=== PATIENT | male | born 1955 | race Two or more races ===

== ENCOUNTER 2020-10-07 09:04 | Emergency (ER) | payer OTHER ==
[2020-10-07 09:13] VITALS: RESP 18
[2020-10-07] MEDS ORDERED: KETOROLAC 15 MG/ML 1 ML VIAL IVP STA (09:53)
[2020-10-07] MEDS ORDERED: ONDANSETRON 4 MG/2 ML VIAL IVP STA (09:53)
[2020-10-07] MEDS ORDERED: SODIUM CHLORIDE 0.9% 1,000 ML IV ONE (09:54)
--- NOTE | 2020-10-07 10:14 | XR ---
EXAMINATION TYPE: XR chest 2V DATE OF EXAM: 10/07/2020 COMPARISON: NONE HISTORY: Shortness of breath and cough, dizziness and loss of appetite TECHNIQUE: Frontal and lateral views of the chest are obtained. FINDINGS: There is some patchy density seen bilaterally within the lungs. No evident pneumothorax or pleural effusion. Heart and mediastinal silhouette is within normal limits. Aorta is dense. IMPRESSION: Correlate for possible pneumonia. Follow-up as indicated.
[2020-10-07 10:22] LABS: Basophils # (A) 0.1 k/uL (0-0.2); Basophils % (A) 1 %; Eosinophils % (A) 0 %; HCT 49.8 % (39.0-53.0); Lymphocytes # (A) 1.3 k/uL (1.0-4.8); Lymphocytes % (A) 19 %; MCV 88.2 fL (80.0-100.0); Mean Platelet Volume 8.5; Monocytes # (A) 0.7 k/uL (0-1.0); Monocytes % (A) 11 %; Neutrophils # (A) 4.6 k/uL (1.3-7.7); Neutrophils % (A) 67 %; Platelet Count 212 k/uL (150-450); RBC 5.65 m/uL (4.30-5.90); RDW 13.8 % (11.5-15.5)
[2020-10-07 10:36] LABS: Albumin 4.8 g/dL (3.5-5.0); Calcium 9.1 mg/dL (8.4-10.2); Potassium 4.6 mmol/L (3.5-5.1); Total Bilirubin 1.2 mg/dL (0.2-1.3); Total Protein 8.5 g/dL (6.3-8.2)
[2020-10-07] MEDS ORDERED: ACETAMINOPHEN TAB 325 MG TAB PO STA (11:02)
--- NOTE | 2020-10-07 11:43 | ED ---
General Adult HPI - General Chief complaint: Upper Respiratory Infection Stated complaint: Vomiting Time Seen by Provider: 10/07/20 09:47 Source: patient, RN notes reviewed Mode of arrival: ambulatory Limitations: no limitations - History of Present Illness Initial comments: This a 65-year-old male presents emergency Department chief complaint of genera lized not feeling well. Patient's had nausea vomiting diarrhea cough congestion no major shortness breath no chest pain currently. Patient states that he just generally does not feel well he's had in between fevers and body aches. - Related Data Previous Rx's Medication Instructions Recorded Ondansetron Odt [Zofran Odt] 4 mg PO Q8HR PRN #10 tab 10/07/20 Allergies Allergy/AdvReac Type Severity Reaction Status Date / Time Penicillins Allergy Unknown Verified 10/07/20 11:23 Childhood Review of Systems ROS Statement: Those systems with pertinent positive or pertinent negative responses have been documented in the HPI. ROS Other: All systems not noted in ROS Statement are negative. Past Medical History Past Medical History: No Reported History History of Any Multi-Drug Resistant Organisms: None Reported Past Surgical History: No Surgical Hx Reported Past Psychological History: No Psychological Hx Reported Smoking Status: Former smoker Past Alcohol Use History: None Reported Past Drug Use History: None Reported General Exam Limitations: no limitations General appearance: alert, in no apparent distress Head exam: Present: atraumatic, normocephalic, normal inspection Eye exam: Present: normal appearance, PERRL, EOMI. Absent: scleral icterus, conjunctival injection, periorbital swelling ENT exam: Present: normal exam, normal oropharynx, mucous membranes moist, TM's normal bilaterally Neck exam: Present: normal inspection, full ROM. Absent: tenderness, meningismus, lymphadenopathy Respiratory exam: Present: normal lung sounds bilaterally. Absent: respiratory distress, wheezes, rales, rhonchi, stridor Cardiovascular Exam: Present: regular rate, normal rhythm, normal heart sounds. Absent: systolic murmur, diastolic murmur, rubs, gallop, clicks GI/Abdominal exam: Present: soft, normal bowel sounds. Absent: distended, tenderness, guarding, rebound, rigid Course Vital Signs 10/07/20 10/07/20 09:10 10:13 Temperature 99.5 F 100.1 F H Pulse Rate 93 Respiratory 18 Rate Blood Pressure 106/79 O2 Sat by Pulse 98 98 Oximetry Medical Decision Making - Medical Decision Making Chest x-ray shows evidence of Covid pneumonia, vitals are otherwise stable, labs unremarkable. Patient discharged in stable condition. - Lab Data Result diagrams: 10/07/20 10:04 10/07/20 10:04 Lab Results 10/07/20 10/07/20 10/07/20 Range/Units 09:41 10:04 10:04 WBC 7.0 (3.8-10.6) k/uL RBC 5.65 (4.30-5.90) m/uL Hgb 17.0 (13.0-17.5) gm/dL Hct 49.8 (39.0-53.0) % MCV 88.2 (80.0-100.0) fL MCH 30.0 (25.0-35.0) pg MCHC 34.0 (31.0-37.0) g/dL RDW 13.8 (11.5-15.5) % Plt Count 212 (150-450) k/uL MPV 8.5 Neutrophils % 67 % Lymphocytes % 19 % Monocytes % 11 % Eosinophils % 0 % Basophils % 1 % Neutrophils # 4.6 (1.3-7.7) k/uL Lymphocytes # 1.3 (1.0-4.8) k/uL Monocytes # 0.7 (0-1.0) k/uL Eosinophils # 0.0 (0-0.7) k/uL Basophils # 0.1 (0-0.2) k/uL Sodium 137 (137-145) mmol/L Potassium 4.6 (3.5-5.1) mmol/L Chloride 99 (98-107) mmol/L Carbon Dioxide 24 (22-30) mmol/L Anion Gap 14 mmol/L BUN 20 (9-20) mg/dL Creatinine 1.38 H (0.66-1.25) mg/dL Est GFR (CKD-EPI)AfAm 63 (>60 ml/min/1.73 sqM) Est GFR (CKD-EPI)NonAf 54 (>60 ml/min/1.73 sqM) Glucose 135 H (74-99) mg/dL Calcium 9.1 (8.4-10.2) mg/dL Total Bilirubin 1.2 (0.2-1.3) mg/dL AST 74 H (17-59) U/L ALT 84 H (4-49) U/L Alkaline Phosphatase 79 (38-126) U/L Total Protein 8.5 H (6.3-8.2) g/dL Albumin 4.8 (3.5-5.0) g/dL Lipase 71 (23-300) U/L Coronavirus (PCR) Detected A (Not Detectd) Disposition Clinical Impression: COVID-19 Disposition: HOME SELF-CARE Condition: Stable Instructions (If sedation given, give patient instructions): Coronavirus Disease 2019 (COVID-19) Additional Instructions: Please return to the Emergency Department if symptoms worsen or any other concerns. Prescriptions: Ondansetron Odt [Zofran Odt] 4 mg PO Q8HR PRN #10 tab PRN Reason: Nausea Is patient prescribed a controlled substance at d/c from ED?: No Referrals: None,Stated [Primary Care Provider] - 1-2 days Time of Disposition: 11:43
[2020-10-07 11:59] VITALS: BP 126/78; PULSE 90; TEMP 98.9
== END 2020-10-07 12:05 | disposition home or self-care (01) ==
LOC: EC 09:04
DX: U07.1 COVID-19 (principal); Z87.891 Personal history of nicotine dependence; Z88.0 Allergy status to penicillin
CPT/HCPCS: 36415; 80053; 83690; 85025; 87635; 71046; 99284; 96374; 96375; 96361; J2405; J1885

== ENCOUNTER 2020-10-12 18:49 | Inpatient (IN) | payer OTHER ==
--- NOTE | 2020-10-12 19:15 | ED ---
General Adult HPI <Mike Li - Last Filed: 10/12/20 19:11> <Venancio Eng - Last Filed: 10/13/20 02:03> - General Stated complaint: covid+/low oxygen & fever - History of Present Illness Initial comments: 65-year-old male presents to emergency Department with a chief complaint cough, fever, myalgias, fatigue. Patient reports dyspnea on exertion but denies any chest pain. Reports a nonproductive cough. Patient tested positive for Covid on 10/07/20. Patient states he was in emergency department on 5 days ago for the same complaint. Patient is currently at 95% on 3 L of oxygen on nasal cannula. (Mike Li) - Related Data Home Medications Medication Instructions Recorded Confirmed Acetaminophen [Tylenol] 1,000 mg PO Q4H PRN 10/12/20 10/12/20 Ibuprofen [Motrin Ib] 800 mg PO Q4H PRN 10/12/20 10/12/20 Previous Rx's Medication Instructions Recorded Ondansetron Odt [Zofran Odt] 4 mg PO Q8HR PRN #10 tab 10/07/20 Allergies Allergy/AdvReac Type Severity Reaction Status Date / Time Penicillins Allergy Unknown Verified 10/12/20 23:31 Childhood Review of Systems ROS Other: All systems not noted in ROS Statement are negative. <Mike Li - Last Filed: 10/12/20 19:11> ROS Other: All systems not noted in ROS Statement are negative. <Venancio Eng - Last Filed: 10/13/20 02:03> ROS Statement: Those systems with pertinent positive or pertinent negative responses have been documented in the HPI. Past Medical History Past Medical History: No Reported History History of Any Multi-Drug Resistant Organisms: None Reported Past Surgical History: No Surgical Hx Reported Past Psychological History: No Psychological Hx Reported Smoking Status: Former smoker Past Alcohol Use History: None Reported Past Drug Use History: None Reported <Mike Li - Last Filed: 10/12/20 19:11> General Exam General appearance: alert, in no apparent distress, anxious, in distress Head exam: Present: atraumatic, normocephalic, normal inspection Eye exam: Present: normal appearance, PERRL, EOMI. Absent: scleral icterus, conjunctival injection, periorbital swelling ENT exam: Present: normal exam, mucous membranes moist Neck exam: Present: normal inspection. Absent: tenderness, meningismus, lymphadenopathy Respiratory exam: Present: respiratory distress, decreased breath sounds, prolonged expiratory. Absent: wheezes, rales, rhonchi, stridor Cardiovascular Exam: Present: regular rate, normal rhythm, normal heart sounds. Absent: systolic murmur, diastolic murmur, rubs, gallop, clicks GI/Abdominal exam: Present: soft, normal bowel sounds. Absent: distended, tenderness, guarding, rebound, rigid Extremities exam: Present: normal inspection, full ROM, normal capillary refill. Absent: tenderness, pedal edema, joint swelling, calf tenderness Back exam: Present: normal inspection Neurological exam: Present: alert, oriented X3, CN II-XII intact Psychiatric exam: Present: normal affect, normal mood Skin exam: Present: warm, dry, intact, normal color. Absent: rash <Venancio Eng - Last Filed: 10/13/20 02:03> Course <Venancio Eng - Last Filed: 10/13/20 02:03> Vital Signs 10/12/20 10/12/20 19:12 22:58 Temperature 98.2 F 98.0 F Pulse Rate 97 73 Respiratory 26 H 18 Rate Blood Pressure 118/86 139/93 O2 Sat by Pulse 93 L 93 L Oximetry - Reevaluation(s) Reevaluation #1: 10/13/20 02:02 Medical records reviewed (Venancio Eng) Reevaluation #2: 10/13/20 02:02 Patient remains hypoxic without supplemental O2 here in the ER (Venancio Eng) Reevaluation #3: 10/13/20 02:02 Patient informed results and questions have been answered (Venancio Eng) - Consultations Consultation #1: Spoke with sound who agrees to admit this patient (Venancio Eng) Medical Decision Making - Lab Data Result diagrams: 10/12/20 23:22 10/12/20 23:22 - Radiology Data Radiology results: report reviewed (Chest x-rays positive for infiltrate secondary to covid), image reviewed <Venancio Eng - Last Filed: 10/13/20 02:03> - Medical Decision Making 65 male to the ER with coronavirus positive for continued exposure with hypoxia. Patient significantly ill [place] for continued supportive care (Venancio Martino) Critical Care Time Critical Care Time: Yes Total Critical Care Time: 31 <Venancio Eng - Last Filed: 10/13/20 02:03> Disposition <Mike Li - Last Filed: 10/12/20 19:11> Is patient prescribed a controlled substance at d/c from ED?: No <Venancio Eng - Last Filed: 10/13/20 02:03> Clinical Impression: COVID-19, Pneumonia due to COVID-19 virus, Hypoxia Disposition: ADMITTED IP TO THIS HOSP Condition: Fair
[2020-10-12] MEDS ORDERED: ALBUTEROL HFA INHALER INHALATION STA (23:09)
[2020-10-12] MEDS ORDERED: ACETAMINOPHEN TAB 500 MG TAB PO STA (23:09)
[2020-10-12] MEDS ORDERED: NALOXONE 0.4 MG/ML 1 ML VIAL IV PRN (23:09)
[2020-10-12] MEDS ORDERED: MORPHINE SULFATE 4 MG/ML SYRINGE IV PRN (23:09)
[2020-10-12] MEDS ORDERED: IBUPROFEN 400 MG TAB PO PRN (23:09)
[2020-10-12] MEDS ORDERED: ACETAMINOPHEN TAB 325 MG TAB PO PRN (23:09)
[2020-10-12] MEDS ORDERED: ONDANSETRON 4 MG/2 ML VIAL IVP PRN (23:09)
[2020-10-12] MEDS ORDERED: DEXAMETHASONE SOD PHOSPHATE 10 MG/ML 1 ML VIAL IV STA (23:13)
[2020-10-12] MEDS ORDERED: KETOROLAC 15 MG/ML 1 ML VIAL IVP STA (23:13)
[2020-10-12] MEDS: SODIUM CHLORIDE 0.9% 1,000 ML IV SCH (23:35)
[2020-10-13 00:17] LABS: ALT 88 U/L (4-49); AST 99 U/L (17-59); African American GFR (CKD) >90 (>60 ml/min/1.73 sqM); Albumin 3.9 g/dL (3.5-5.0); Alkaline Phosphatase 98 U/L (38-126); Anion Gap 11 mmol/L; Blood Urea Nitrogen 23 mg/dL (9-20); C Reactive Protein 89.1 mg/L (<10.0); Calcium 9.1 mg/dL (8.4-10.2); Carbon Dioxide 24 mmol/L (22-30); Chloride 104 mmol/L (98-107); Glucose 122 mg/dL (74-99); Magnesium 2.5 mg/dL (1.6-2.3); Non-African American GFR(CKD) >90 (>60 ml/min/1.73 sqM); Potassium 4.7 mmol/L (3.5-5.1); Sodium 139 mmol/L (137-145); Total Bilirubin 1.2 mg/dL (0.2-1.3); Total Protein 7.5 g/dL (6.3-8.2)
[2020-10-13 00:34] LABS: D-Dimer 1.17 mg/L FEU (<0.60); INR 0.9 (<1.2); Partial Thromboplastin Time 32.3 sec (22.0-30.0)
[2020-10-13 00:37] LABS: HCT 45.7 % (39.0-53.0); HGB 15.9 gm/dL (13.0-17.5); MCH 30.7 pg (25.0-35.0); MCHC 34.8 g/dL (31.0-37.0); MCV 88.3 fL (80.0-100.0); Mean Platelet Volume 9.6; Platelet Count 332 k/uL (150-450); RBC 5.18 m/uL (4.30-5.90); RDW 13.7 % (11.5-15.5); WBC 8.7 k/uL (3.8-10.6)
[2020-10-13 00:59] LABS: Band Neutrophils % 1 %; Lymphocytes # (M) 2.18 k/uL (1.0-4.8); Metamyelocytes # (M) 0.09 k/uL (0); Metamyelocytes % 1 %; Neutrophils % (M) 65 %; Nucleated Red Blood Cells 0 /100 WBC (0-0); Total Cells Counted 100
--- NOTE | 2020-10-13 05:06 | P.HPIM ---
History of Present Illness H&P Date: 10/13/20 Chief Complaint: SOB 65 year old male with no significant past medical history patient was diagnosed with COVID in our ER on october 07, he had symptoms for about 4 days before that , he had close contact with his nephew who was later diagnosed with COVID and doing well now. patient describe sympotoms of generalized body aches , fever, chills, nausea and vomiting, passing out couple times. his who lives with him is doing well, however, she is just starting to have some sore throat. he comes in today due to feeling shortness of breath. he was found to be hypoxic 87% on room air, improved with supplemental oxygen of 3 L NC. blood work reviewed. patient denies any smoking, drug use, or alcohol on regular basis he report big improvement and more comfortable breathing with oxygen . he currently denies any chest pain . Review of Systems Pertinent positives as noted in HPI. All other systems were reviewed and are negative Past Medical History Past Medical History: No Reported History Additional Past Medical History / Comment(s): covid 10/07 History of Any Multi-Drug Resistant Organisms: None Reported Past Surgical History: No Surgical Hx Reported Past Psychological History: No Psychological Hx Reported Smoking Status: Former smoker Past Alcohol Use History: None Reported Past Drug Use History: None Reported - Past Family History family Family Medical History: No Reported History Medications and Allergies Home Medications Medication Instructions Recorded Confirmed Type Ondansetron Odt [Zofran Odt] 4 mg PO Q8HR PRN #10 tab 10/07/20 10/12/20 Rx Acetaminophen [Tylenol] 1,000 mg PO Q4H PRN 10/12/20 10/12/20 History Ibuprofen [Motrin Ib] 800 mg PO Q4H PRN 10/12/20 10/12/20 History Allergies Allergy/AdvReac Type Severity Reaction Status Date / Time Penicillins Allergy Unknown Verified 10/12/20 23:31 Childhood Physical Exam Vitals: Vital Signs Temp Pulse Resp BP Pulse Ox 10/13/20 01:00 98.3 F 81 18 110/83 96 10/13/20 00:00 18 10/12/20 22:58 98.0 F 73 18 139/93 93 L 10/12/20 19:12 98.2 F 97 26 H 118/86 93 L Intake and Output 0410/12/20 10/13/20 14:59 22:59 06:59 Other: Weight 90.718 kg Constitutional: No acute distress, conversant, pleasant Eyes: Anicteric sclerae, moist conjunctiva, Pupils equal round reactive to light ENMT: NC/AT Oropharynx clear, no erythema, or exudates Neck: Supple, FROM, no masses, or JVD No carotid bruits No thyromegaly Lungs: Clear to auscultation Clear to percussion Normal respiratory effort, no accessory muscle use Cardiovascular: Heart regular in rate and rhythm, No murmurs, gallops, or rubs No peripheral edema Abdominal: Soft Nontender, no guarding, rebound or rigidity Abdomen moving with respiration Normoactive bowel sounds No hepatomegaly, No splenomegaly No palpable mass No abdominal wall hernia noted Skin: Normal temperature, tone, texture, turgor No induration No subcutaneous nodules No rash, lesions No ulcers Extremities: No digital cyanosis No clubbing Pedal pulses intact and symmetrical Radial pulses intact and symmetrical No calf tenderness Psychiatric: Alert and oriented to person, place and time Appropriate affect fair judgement Neuro Muscles Strength 5/5 in all 4 extremities Sensation to light touch grossly present throughout Cranial nerves II-XII grossly intact No focal sensory deficits Lymphatics: no palpable cervical or supraclavicular , or inguinal lymph nodes Results CBC & Chem 7: 10/12/20 23:22 10/12/20 23:22 Labs: Abnormal Lab Results - Last 24 Hours (Table) 10/12/20 10/12/20 10/12/20 Range/Units 23:22 23:22 23:22 Metamyelocytes # (Man) 0.09 H (0) k/uL APTT 32.3 H (22.0-30.0) sec D-Dimer 1.17 H (<0.60) mg/L FEU BUN 23 H (9-20) mg/dL Glucose 122 H (74-99) mg/dL Magnesium (1.6-2.3) mg/dL AST 99 H (17-59) U/L ALT 88 H (4-49) U/L Lactate Dehydrogenase (313-618) U/L C-Reactive Protein (<10.0) mg/L 10/12/20 Range/Units 23:22 Metamyelocytes # (Man) (0) k/uL APTT (22.0-30.0) sec D-Dimer (<0.60) mg/L FEU BUN (9-20) mg/dL Glucose (74-99) mg/dL Magnesium 2.5 H (1.6-2.3) mg/dL AST (17-59) U/L ALT (4-49) U/L Lactate Dehydrogenase 1511 H (313-618) U/L C-Reactive Protein 89.1 H (<10.0) mg/L Assessment and Plan Assessment: Acute hypoxic respiratory failure COVID pneumonitis Slightly elevated liver enzymes Plan Supportive care Supplemental oxygen as needed Decadron Pulmonary consult Follow-up labs Follow-up d-dimer, LDH, ferritin for prognostic evaluation Contact and droplet precautions Check chest x-ray Monitor liver enzymes, cautious with Tylenol Lovenox for DVT prophylaxis Patient is full code Anticipated length of stay more than 2 midnights Anticipated discharge to home
[2020-10-13 05:12] LABS: HCT 40.8 % (39.0-53.0); HGB 14.2 gm/dL (13.0-17.5); MCH 30.5 pg (25.0-35.0); MCHC 34.7 g/dL (31.0-37.0); MCV 87.8 fL (80.0-100.0); Mean Platelet Volume 8.6; Platelet Count 369 k/uL (150-450); RBC 4.64 m/uL (4.30-5.90); RDW 13.6 % (11.5-15.5); WBC 6.8 k/uL (3.8-10.6)
[2020-10-13 05:38] LABS: Potassium 4.4 mmol/L (3.5-5.1)
[2020-10-13 05:39] LABS: ALT 131 U/L (4-49); AST 170 U/L (17-59); African American GFR (CKD) >90 (>60 ml/min/1.73 sqM); Albumin 3.3 g/dL (3.5-5.0); Alkaline Phosphatase 93 U/L (38-126); Anion Gap 7 mmol/L; Blood Urea Nitrogen 26 mg/dL (9-20); Calcium 8.6 mg/dL (8.4-10.2); Carbon Dioxide 25 mmol/L (22-30); Chloride 104 mmol/L (98-107); Glucose 195 mg/dL (74-99); Magnesium 2.4 mg/dL (1.6-2.3); Non-African American GFR(CKD) >90 (>60 ml/min/1.73 sqM); Phosphorus 2.6 mg/dL (2.5-4.5); Sodium 136 mmol/L (137-145); Total Bilirubin 1.1 mg/dL (0.2-1.3); Total Protein 6.5 g/dL (6.3-8.2)
--- NOTE | 2020-10-13 07:29 | XR ---
EXAMINATION TYPE: XR chest 1V DATE OF EXAM: 10/13/2020 HISTORY: Shortness of breath. COMPARISON: 10/07/2020 TECHNIQUE: Single view of the chest is submitted. FINDINGS: Demonstrated are scattered senescent parenchymal change. Patchy perihilar and basilar infiltrates. The heart is stable. Hilar and mediastinal structures are within normal limits. Degenerative changes are seen of the dorsal spine. IMPRESSION: 1. Patchy perihilar and basilar infiltrates.
[2020-10-13] MEDS: DEXAMETHASONE SOD PHOSPHATE 10 MG/ML 1 ML VIAL IV SCH (07:48)
[2020-10-13] MEDS: ENOXAPARIN 40 MG/0.4 ML SYRINGE SQ SCH (07:48)
[2020-10-13 08:09] LABS: Lymphocytes # (M) 1.09 k/uL (1.0-4.8); Neutrophils # (M) 5.71 k/uL (1.3-7.7); Neutrophils % (M) 84 %; Nucleated Red Blood Cells 0 /100 WBC (0-0); Total Cells Counted 100
[2020-10-13] MEDS: ALBUTEROL HFA INHALER INHALATION PRN ×4 (08:24→22:34)
[2020-10-13] MEDS: CHOLECALCIFEROL 25 MCG (1000 IU) TABLET PO SCH (09:28)
[2020-10-13] MEDS: FAMOTIDINE 20 MG TAB PO SCH (09:28)
[2020-10-13] MEDS: SODIUM CHLORIDE 0.9% 1,000 ML IV SCH ×2 (09:29→20:42)
[2020-10-13] MEDS: ZINC SULFATE 220 MG CAP PO SCH (09:29)
[2020-10-13 10:50] LABS: LDH 1535 U/L (313-618)
--- NOTE | 2020-10-13 11:39 | P.CNPUL ---
History of Present Illness Consult date: 10/13/20 Requesting physician: Mike Li Reason for consult: dyspnea, hypoxemia, abnormal CXR/CT Chief complaint: Dyspnea, cough, fever, syncopal episodes, COVID 19 History of present illness: 65-year-old white male patient, who is a former smoker, quit smoking 5 years ago, but no chronic lung condition, not on any chronic prescription medications on a regular basis, who came into the emergency department on 10/12/2020 with symptoms of increased shortness of breath, cough, patient was having high fevers at home, and had a syncopal episodes. he was seen in the ER on 10/07/2020 and tested positive for COVID 19, he had initial symptoms of cough, body aches, nausea vomiting on 10/01/2020. He states his nephew apparently recently tested positive for COVID 19 and he had been in contact with him. Normally he does not wear any oxygen. He was sent home on 10/07/2020 however at home he continued to deteriorate, he had several syncopal episodes at home, high fevers, his was treating his fever with [id number] antipyretics, and wrapping him in cold wet towels. He is now requiring supplemental oxygen, currently on 3 L of oxygen pulse ox is 93%, afebrile while in the hospital, hemodynamically he is stable, she was started on Decadron, he was given IV fluids, started on prophylactic anticoagulation, and we were asked to see the patient in consultation for COVID 19 related pneumonia. His chest x-ray shows patchy perihilar and basilar infiltrates. Lab work showed white count 8.6, hemoglobin is 15.9, no lymphopenia, lymphocyte count was normal at 2.18, metamyelocytes of 0.09, and d- dimer was 1.17, electrolytes within normal limits, BUN of 23, creatinine 0.83, AST was 99, ALT was 88, alkaline phosphatase was 98, LDH was 1511, and CRP was 89.1. Review of Systems All systems: negative Constitutional: Reports fatigue, Reports fever, Reports weakness, Denies chills Eyes: denies blurred vision, denies pain Ears, nose, mouth and throat: Denies headache, Denies sore throat Cardiovascular: Denies chest pain, Denies shortness of breath Respiratory: Reports cough, Reports dyspnea Gastrointestinal: Denies abdominal pain, Denies diarrhea, Denies nausea, Denies vomiting Musculoskeletal: Denies myalgias Integumentary: Denies pruritus, Denies rash Neurological: Reports syncope, Denies numbness, Denies weakness Psychiatric: Denies anxiety, Denies depression Endocrine: Denies fatigue, Denies weight change Past Medical History Past Medical History: Respiratory Disorder Additional Past Medical History / Comment(s): Pt diagnosed with covid 4 at [facility] ER. Pt states he has no past medical hx and that he does not see a physician regularly. History of Any Multi-Drug Resistant Organisms: None Reported Past Surgical History: No Surgical Hx Reported Past Anesthesia/Blood Transfusion Reactions: Unable to Obtain Additional Past Anesthesia/Blood Transfusion Reaction / Comment(s): Pt has never had surgery. Smoking Status: Former smoker - Past Family History Mother Family Medical History: Coronary Artery Disease (CAD) Additional Family Medical History / Comment(s): Mother had cardiac stents. She lived to be 83 yrs old. Father Family Medical History: Cancer Additional Family Medical History / Comment(s): Father of lymphoma at the age of 85 yrs. family Family Medical History: No Reported History Medications and Allergies Home Medications Medication Instructions Recorded Confirmed Type Ondansetron Odt [Zofran Odt] 4 mg PO Q8HR PRN #10 tab 10/07/20 10/12/20 Rx Acetaminophen [Tylenol] 1,000 mg PO Q4H PRN 10/12/20 10/12/20 History Ibuprofen [Motrin Ib] 800 mg PO Q4H PRN 10/12/20 10/12/20 History Allergies Allergy/AdvReac Type Severity Reaction Status Date / Time Penicillins Allergy Unknown Verified 10/12/20 23:31 Childhood Physical Exam Vitals: Vital Signs Temp Pulse Resp BP Pulse Ox 10/13/20 07:56 97.8 F 93 L 10/13/20 06:13 98 F 73 18 139/92 95 10/13/20 01:00 98.3 F 81 18 110/83 96 10/13/20 00:00 18 10/12/20 22:58 98.0 F 73 18 139/93 93 L 10/12/20 19:12 98.2 F 97 26 H 118/86 93 L Intake and Output 10/12/20 10/13/2021 22:59 06:59 14:59 Other: Weight 90.718 kg 90.718 kg GENERAL EXAM: Alert, very pleasant, 65-year-old white male, 2 L of oxygen pulse ox of 96%,, comfortable in no apparent distress. HEAD: Normocephalic/atraumatic. EYES: Normal reaction of pupils, equal size. Conjunctiva pink, sclera white. NOSE: Clear with pink turbinates. THROAT: No erythema or exudates. NECK: No masses, no JVD, no thyroid enlargement, no adenopathy. CHEST: No chest wall deformity. Symmetrical expansion. LUNGS: Equal air entry with bibasilar crackles CVS: Regular rate and rhythm, normal S1 and S2, no gallops, no murmurs, no rubs ABDOMEN: Soft, nontender. No hepatosplenomegaly, normal bowel sounds, no guarding or rigidity. EXTREMITIES: No clubbing, no edema, no cyanosis, 2+ pulses and upper and lower extremities. MUSCULOSKELETAL: Muscle strength and tone normal. SPINE: No scoliosis or deformity SKIN: No rashes CENTRAL NERVOUS SYSTEM: Alert and oriented -3. No focal deficits, tone is normal in all 4 extremities. PSYCHIATRIC: Alert and oriented -3. Appropriate affect. Intact judgment and insight. Results - Laboratory Findings CBC and BMP: 10/13/20 04:45 10/13/20 04:45 PT/INR, D-dimer PT 10.0 sec (9.0-12.0) 10/12/20 23:22 INR 0.9 (<1.2) 10/12/20 23:22 D-Dimer 1.17 mg/L FEU (<0.60) H 10/12/20 23:22 Abnormal lab findings: Abnormal Labs 10/12/20 10/12/20 10/12/20 23:22 23:22 23:22 Metamyelocytes # (Man) 0.09 H APTT 32.3 H D-Dimer 1.17 H Sodium BUN 23 H Glucose 122 H Magnesium AST 99 H ALT 88 H Lactate Dehydrogenase C-Reactive Protein Albumin 10/12/20 10/13/20 23:22 04:45 Metamyelocytes # (Man) APTT D-Dimer Sodium 136 L BUN 26 H Glucose 195 H Magnesium 2.5 H 2.4 H AST 170 H ALT 131 H Lactate Dehydrogenase 1511 H 1535 H C-Reactive Protein 89.1 H Albumin 3.3 L - Diagnostic Findings Chest x-ray: report reviewed, image reviewed Additional studies: EKG reviewed Assessment and Plan Plan: Assessment: #1. Acute hypoxic respiratory failure related to acute COVID 19 pneumonitis, first onset of symptoms on 10/01/2020, tested positive on 10/07/2020, out of the window for Remdesivir #2. Syncopal episodes, fever, dyspnea, body aches, nausea vomiting and diarrhea related to the above #3. Increased inflammatory markers and increased d-dimer 1.17 on admission related to acute COVID 19 infection #4. Elevated transaminases likely related to viral pneumonia #5. 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 I reviewed the nurse yaritza whitman's note and agree with the documented findings and plan of care. Lung sounds are positive for bibasilar rales. The findings and the impression was discussed with the patient. I attest to the documentation by the nurse practitioner. Time with Patient: Greater than 30
[2020-10-13 13:40] VITALS: BMI 31.3
--- NOTE | 2020-10-13 16:38 | P.PN ---
Subjective Progress Note Date: 10/13/20 ([facility] charting seen at 1230) Principal diagnosis: syncope Patient is a 65-year-old male with no known past medical history who was diagnosed with elevated on October 07, symptoms starting at approximately 10/03 and presented to the ER secondary to several episodes of syncope, generalized body aches, fever, and chills. His is concerned because his oxygen levels were in the low 90s she sent him to the emergency department. The lungs were found to be diagnosed with dehydration, CRP was elevated at 89 and LDH 1511. He was started on Decadron and bronchodilators. Arrangements were made for admission. Pulmonary was consulted. They agreed with continued dexamethasone, vitamins, and Lovenox. They ordered 1 unit of convalescent plasma. Patient seen and examined at bedside. He states he is feeling much better after IV fluids. He is no longer feeling lightheaded or dizzy. He reports no history of echocardiogram or cardiac problems in the past. He denies any current nausea or vomiting and states he is tolerating his diet well. General: non toxic, no distress, appears at stated age, + diaphoresis Derm: warm, dry Head: atraumatic, normocephalic, symmetric Eyes: EOMI, no lid lag, anicteric sclera Mouth: no lip lesion, mucus membranes moist Cardiovascular: S1S2 reg, no murmur, positive posterior tibial pulse bilateral, Lungs: Course bilateral, no rhonchi, no rales , no accessory muscle use Abdominal: soft, nontender to palpation, no guarding, no appreciable organomegaly Ext: no gross muscle atrophy, no edema, no contractures Neuro: CN II-XI grossly intact, no focal neuro deficits Psych: Alert, oriented, appropriate affect COVID Pneumonitis with acute hypoxic respiratory failure Transaminitis likely related to viral illness Syncope Hx of tobacco abuse - tele, echo, orthostatics were negative - dexmethasone, vit D, zinc, Lovenox - Will need PCP on discharge DVT prophylaxis: Lovenox Discussed with: Patient, nursing Anticipated discharge: in AM Anticipated discharge place: home A total of 25 minutes was spent on the care of this complex patient more than 50% of the time was spent in counseling and care coordination. Objective - Vital Signs Vital signs: Vital Signs Temp 98.3 F 10/13/20 15:56 Pulse 82 04/07/21 15:56 Resp 18 10/13/20 15:56 BP 125/93 10/13/20 15:56 Pulse Ox 93 L 10/13/20 15:56 Intake & Output 10/12/20 10/13/20 10/13/20 18:59 06:59 18:59 Weight 90.718 kg 90.718 kg - Labs CBC & Chem 7: 10/13/20 04:45 10/13/20 04:45 Labs: Abnormal Lab Results - Last 24 Hours (Table) 10/12/20 10/12/20 10/12/20 Range/Units 23:22 23:22 23:22 Metamyelocytes # (Man) 0.09 H (0) k/uL APTT 32.3 H (22.0-30.0) sec D-Dimer 1.17 H (<0.60) mg/L FEU Sodium (137-145) mmol/L BUN 23 H (9-20) mg/dL Glucose 122 H (74-99) mg/dL Magnesium (1.6-2.3) mg/dL AST 99 H (17-59) U/L ALT 88 H (4-49) U/L Lactate Dehydrogenase (313-618) U/L C-Reactive Protein (<10.0) mg/L Albumin (3.5-5.0) g/dL 10/12/20 10/13/20 10/13/20 Range/Units 23:22 04:45 13:12 Metamyelocytes # (Man) (0) k/uL APTT (22.0-30.0) sec D-Dimer 0.88 H (<0.60) mg/L FEU Sodium 136 L (137-145) mmol/L BUN 26 H (9-20) mg/dL Glucose 195 H (74-99) mg/dL Magnesium 2.5 H 2.4 H (1.6-2.3) mg/dL AST 170 H (17-59) U/L ALT 131 H (4-49) U/L Lactate Dehydrogenase 1511 H 1535 H (313-618) U/L C-Reactive Protein 89.1 H (<10.0) mg/L Albumin 3.3 L (3.5-5.0) g/dL
[2020-10-13] MEDS: MELATONIN 3 MG TABLET PO SCH (23:40)
[2020-10-14 02:45] LABS: Ferritin 1368.3 ng/mL (22.0-322.0)
[2020-10-14] MEDS: SODIUM CHLORIDE 0.9% 1,000 ML IV SCH ×2 (05:08→13:00)
[2020-10-14] MEDS: ALBUTEROL HFA INHALER INHALATION PRN ×2 (07:25→18:55)
[2020-10-14] MEDS: DEXAMETHASONE SOD PHOSPHATE 10 MG/ML 1 ML VIAL IV SCH (08:38)
[2020-10-14] MEDS: CHOLECALCIFEROL 25 MCG (1000 IU) TABLET PO SCH (08:38)
[2020-10-14] MEDS: FAMOTIDINE 20 MG TAB PO SCH (08:38)
[2020-10-14] MEDS: ZINC SULFATE 220 MG CAP PO SCH (08:38)
[2020-10-14] MEDS: ENOXAPARIN 40 MG/0.4 ML SYRINGE SQ SCH (08:38)
--- NOTE | 2020-10-14 10:47 | XR ---
EXAMINATION TYPE: XR chest 1V portable DATE OF EXAM: 10/14/2020 HISTORY: Shortness of breath. COMPARISON: 10/13/2020 TECHNIQUE: Single view of the chest is submitted. FINDINGS: Demonstrated are scattered senescent parenchymal change. Persistent peripheral infiltrates noted within both lung ball. The heart is stable. Hilar and mediastinal structures are within normal limits. Degenerative changes are seen of the dorsal spine. IMPRESSION: 1. Persistent peripheral infiltrates noted within both lung ball.
--- NOTE | 2020-10-14 11:00 | P.PN ---
Subjective Progress Note Date: 10/14/20 Principal diagnosis: Dyspnea, hypoxemia, abnormal chest x-ray, COVID 19 65-year-old white male patient, who is a former smoker, quit smoking 5 years ago, but no chronic lung condition, not on any chronic prescription medications on a regular basis, who came into the emergency department on 10/12/2020 with symptoms of increased shortness of breath, cough, patient was having high fevers at home, and had a syncopal episodes. he was seen in the ER on 10/07/2020 and tested positive for COVID 19, he had initial symptoms of cough, body aches, nausea vomiting on 10/01/2020. He states his nephew apparently recently tested positive for COVID 19 and he had been in contact with him. Normally he does not wear any oxygen. He was sent home on 10/07/2020 however at home he continued to deteriorate, he had several syncopal episodes at home, high fevers, his was treating his fever with [id number] antipyretics, and wrapping him in cold wet towels. He is now requiring supplemental oxygen, currently on 3 L of oxygen pulse ox is 93%, afebrile while in the hospital, hemodynamically he is stable, she was started on Decadron, he was given IV fluids, started on prophylactic anticoagulation, and we were asked to see the patient in consultation for COVID 19 related pneumonia. His chest x-ray shows patchy perihilar and basilar infiltrates. Lab work showed white count 8.6, hemoglobin is 15.9, no lymphopenia, lymphocyte count was normal at 2.18, metamyelocytes of 0.09, and d- dimer was 1.17, electrolytes within normal limits, BUN of 23, creatinine 0.83, AST was 99, ALT was 88, alkaline phosphatase was 98, LDH was 1511, and CRP was 89.1. 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 No acute issues overnight, his been afebrile, at rest she seems to be breathing comfortably, lung sounds positive for scattered crackles, no wheezes, no recurrent syncopal episodes, tolerating oral diet, no nausea or vomiting, today's labs are pending, repeat chest x-ray is pending, his ferritin on yesterday's labs as been significantly elevated at 1368, and his inflammatory markers remains elevated with LDH at 1535. D-dimer was 0.88, patient is on prophylactic dose Lovenox. She remains on IV hydration 0.9 normal saline at 100 ML per hour. Objective - Vital Signs Vital signs: Vital Signs Temp 98.0 F 10/14/20 08:00 Pulse 74 10/14/20 08:00 Resp 16 10/14/20 08:00 BP 102/57 10/14/20 08:00 Pulse Ox 92 L 10/14/20 08:00 Intake & Output 10/13/20 10/14/20 10/14/20 18:59 06:59 18:59 Intake Total 1200 1680 Balance 1200 1680 Weight 90.718 kg Intake: Intake, IV Titration 1200 1200 Amount Sodium Chloride 0.9% 1, 1200 1200 000 ml @ 100 mls/hr IV . Q10H RUTHANN Rx#:[id number] Oral 480 Other: # Voids 3 - Exam GENERAL EXAM: Alert, very pleasant, 65-year-old white male, 3 L of oxygen pulse ox of 92%,, comfortable in no apparent distress. HEAD: Normocephalic/atraumatic. EYES: Normal reaction of pupils, equal size. Conjunctiva pink, sclera white. NOSE: Clear with pink turbinates. THROAT: No erythema or exudates. NECK: No masses, no JVD, no thyroid enlargement, no adenopathy. CHEST: No chest wall deformity. Symmetrical expansion. LUNGS: Equal air entry with bibasilar crackles CVS: Regular rate and rhythm, normal S1 and S2, no gallops, no murmurs, no rubs ABDOMEN: Soft, nontender. No hepatosplenomegaly, normal bowel sounds, no guarding or rigidity. EXTREMITIES: No clubbing, no edema, no cyanosis, 2+ pulses and upper and lower extremities. MUSCULOSKELETAL: Muscle strength and tone normal. SPINE: No scoliosis or deformity SKIN: No rashes CENTRAL NERVOUS SYSTEM: Alert and oriented -3. No focal deficits, tone is normal in all 4 extremities. PSYCHIATRIC: Alert and oriented -3. Appropriate affect. Intact judgment and insight. - Labs CBC & Chem 7: 10/13/20 04:45 10/13/20 04:45 Labs: Abnormal Lab Results - Last 24 Hours (Table) 10/13/20 10/13/20 Range/Units 04:45 13:12 D-Dimer 0.88 H (<0.60) mg/L FEU Ferritin 1368.3 H (22.0-322.0) ng/mL Assessment and Plan Plan: Assessment: #1. Acute hypoxic respiratory failure related to acute COVID 19 pneumonitis, first onset of symptoms on 10/01/2020, tested positive on 10/07/2020, out of the window for Remdesivir #2. Syncopal episodes, fever, dyspnea, body aches, nausea vomiting and diarrhea related to the above #3. Increased inflammatory markers and increased d-dimer 1.17 on admission related to acute COVID 19 infection #4. Elevated transaminases likely related to viral pneumonia #5. 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, carries a [id number] smoking history, no chronic lung disease, not oxygen dependent at baseline Plan: Continue current medical treatment, Decadron, symptoms Lovenox, awaiting lab work from today, clinically patient is feeling better, obtain home oxygen assessment, at rest and with ambulation, repeat chest x-ray is pending, still awaiting for convalescent plasma to become available, if he continues to be stable with no signs of deterioration may consider discharge in the next 24 hours I performed a history & physical examination of the patient and discussed their management with my nurse practitioner, Mirlande Hoffmann. I reviewed the nurse practitioner's note and agree with the documented findings and plan of care. Lung sounds are positive for bibasilar rales. The findings and the impression was discussed with the patient. I attest to the documentation by the nurse practitioner. Time with Patient: Less than 30
--- NOTE | 2020-10-14 11:01 | ECHOF ---
Referral Reason:syncope MEASUREMENTS -------- HEIGHT: 170.2 cm WEIGHT: 90.7 kg BP: 149/90 IVSd: 1.0 cm (0.6 - 1.1) LVIDd: 3.7 cm (3.9 - 5.3) LVPWd: 1.2 cm (0.6 - 1.1) EDV(Teich): 59 ml IVSs: 1.8 cm LVIDs: 2.8 cm LVPWs: 1.8 cm %IVS Thck: 85 % ESV(Teich): 29 ml EF(Teich): 51 % %FS: 25 % SV(Teich): 30 ml LALs A4C: 4.9 cm LAAs A4C: 15.8 cm LAESV A-L A4C: 43 ml LAESV MOD A4C: 40 ml LALs A2C: 5.2 cm LAAs A2C: 15.2 cm LAESV A-L A2C: 38 ml LAESV MOD A2C: 36 ml LAESV(A-L): 41 ml LAESV Index (A-L): 20.54 ml/m Ao Diam: 3.7 cm (2.0 - 3.7) LA Diam: 4.2 cm (2.7 - 3.8) AV Cusp: 2.6 cm (1.5 - 2.6) MV E Timothy: 0.78 m/s MV DecT: 199 ms MV Dec Boyd: 3.9 m/s MV A Timothy: 0.89 m/s MV E/A Ratio: 0.88 MV PHT: 58 ms LVOT Vmax: 1.59 m/s LVOT maxP.17 mmHg TR Vmax: 1.91 m/s TR maxP.65 mmHg RAP: 5.00 mmHg RVSP: 19.65 mmHg MV EF SLOPE: 115.45 mm/s (70 - 150) MV EXCURSION: 17.70 mm (> 18.000) FINDINGS -------- Sinus rhythm. This was a technically adequate study. The left ventricular size is normal. Left ventricular wall thickness is normal. Overall left vent ricular systolic function is normal with, an EF between 55 - 60 %. The diastolic filling pattern is normal for the age of the patient 7.08. The right ventricle is normal in size. Normal LA size by volume 22+/-6 ml/m2. The right atrial size is normal. Mobile interatrial septum. There is no evidence of aortic regurgitation. There is no evidence of aortic stenosis. Mild mitral regurgitation is present. Mild tricuspid regurgitation present. There is no evidence of pulmonary hypertension. The right v entricular systolic pressure, as measured by Doppler, is 19.65mmHg. There is no pulmonic regurgitation present. The aortic root size is normal. IVC Not well visulized. There is no pericardial effusion. CONCLUSIONS -------- 1. The left ventricular size is normal. 2. Left ventricular wall thickness is normal. 3. Overall left ventricular systolic function is normal with, an EF between 55 - 60 %. 4. The diastolic filling pattern is normal for the age of the patient 7.08 5. Mobile interatrial septum. 6. Mild mitral regurgitation is present. 7. Mild tricuspid regurgitation present. INSIDE CHANNEL ACCOUNT MANAGER: Judith Seay RDCS
[2020-10-14 11:06] LABS: African American GFR (CKD) >90 (>60 ml/min/1.73 sqM); Anion Gap 9 mmol/L; Blood Urea Nitrogen 18 mg/dL (9-20); C Reactive Protein 40.5 mg/L (<10.0); Calcium 8.9 mg/dL (8.4-10.2); Carbon Dioxide 22 mmol/L (22-30); Chloride 110 mmol/L (98-107); Glucose 133 mg/dL (74-99); LDH 1101 U/L (313-618); Non-African American GFR(CKD) >90 (>60 ml/min/1.73 sqM); Potassium 4.1 mmol/L (3.5-5.1); Sodium 141 mmol/L (137-145)
--- NOTE | 2020-10-14 13:11 | P.PN ---
Subjective Progress Note Date: 10/14/20 Patient is doing well today. Shortness of breath is improving. No acute events overnight reported by nursing staff. Patient did not get his convalescent plasma as ordered. Objective - Vital Signs Vital signs: Vital Signs Temp 97.4 F L 10/14/20 12:56 Pulse 69 10/14/20 12:56 Resp 20 10/14/20 12:56 BP 140/73 10/14/20 12:56 Pulse Ox 93 L 10/14/20 12:56 Intake & Output 10/13/20 10/14/20 10/14/20 18:59 06:59 18:59 Intake Total 1200 1680 Balance 1200 1680 Weight 90.718 kg Intake: Intake, IV Titration 1200 1200 Amount Sodium Chloride 0.9% 1, 1200 1200 000 ml @ 100 mls/hr IV . Q10H RUTHANN Rx#:[id number] Oral 480 Other: # Voids 3 - Exam General: The patient is awake and alert, in no distress Eye: there is normal conjunctiva bilaterally. Neck: The neck is supple, there is no JVD. Cardiovascular: Normal S1-S2, no S3-S4, no murmurs. Respiratory: Lungs clear to auscultation bilaterally Gastrointestinal: Abdomen is soft, nontender Musculoskeletal: There is no pedal edema. Neurological:. Speech is normal. Skin: Skin is warm and dry - Labs CBC & Chem 7: 10/13/20 04:45 10/14/20 10:35 Labs: Abnormal Lab Results - Last 24 Hours (Table) 10/13/20 10/13/20 10/14/20 Range/Units 04:45 13:12 10:35 D-Dimer 0.88 H 1.00 H (<0.60) mg/L FEU Chloride (98-107) mmol/L Glucose (74-99) mg/dL Ferritin 1368.3 H (22.0-322.0) ng/mL Lactate Dehydrogenase (313-618) U/L C-Reactive Protein (<10.0) mg/L 10/14/20 Range/Units 10:35 D-Dimer (<0.60) mg/L FEU Chloride 110 H (98-107) mmol/L Glucose 133 H (74-99) mg/dL Ferritin (22.0-322.0) ng/mL Lactate Dehydrogenase 1101 H (313-618) U/L C-Reactive Protein 40.5 H (<10.0) mg/L Assessment and Plan Assessment: Patient is a 65-year-old male with no known past medical history who was diagnosed with elevated on October 07, symptoms starting at approximately 3 and presented to the ER secondary to several episodes of syncope, generalized body aches, fever, and chills. His is concerned because his oxygen levels were in the low 90s she sent him to the emergency department. The lungs were found to be diagnosed with dehydration, CRP was elevated at 89 and LDH 1511. He was started on Decadron and bronchodilators. Arrangements were made for admission. Pulmonary was consulted. They agreed with continued dexamethasone, vitamins, and Lovenox. They ordered 1 unit of convalescent plasma. COVID Pneumonitis with acute hypoxic respiratory failure Transaminitis likely related to viral illness Syncope Hx of tobacco abuse - tele, echo pending report, orthostatics were negative - dexmethasone, vit D, zinc, Lovenox - Awaiting convalescent plasma transfusion - Will need PCP on discharge DVT prophylaxis: Lovenox Discussed with: Patient, nursing Anticipated discharge: in AM Anticipated discharge place: home A total of 25 minutes was spent on the care of this complex patient more than 50% of the time was spent in counseling and care coordination.
[2020-10-14] MEDS: MELATONIN 3 MG TABLET PO SCH (20:37)
[2020-10-15] MEDS: SODIUM CHLORIDE 0.9% 1,000 ML IV SCH ×2 (01:06→12:26)
[2020-10-15 07:24] VITALS: BP 143/80; PULSE 55; RESP 18; TEMP 98
[2020-10-15] MEDS: ALBUTEROL HFA INHALER INHALATION PRN (07:47)
[2020-10-15] MEDS: CHOLECALCIFEROL 25 MCG (1000 IU) TABLET PO SCH (09:34)
[2020-10-15] MEDS: DEXAMETHASONE SOD PHOSPHATE 10 MG/ML 1 ML VIAL IV SCH (09:34)
[2020-10-15] MEDS: ENOXAPARIN 40 MG/0.4 ML SYRINGE SQ SCH (09:34)
[2020-10-15] MEDS: ZINC SULFATE 220 MG CAP PO SCH (09:34)
[2020-10-15] MEDS: FAMOTIDINE 20 MG TAB PO SCH (09:34)
--- NOTE | 2020-10-15 09:42 | P.DS ---
Providers Date of admission: 10/12/20 23:09 Expected date of discharge: 10/15/20 Attending physician: Yulia Wilburn MD Consults: 10/12/20 23:11 Consult Physician Routine Consulting Provider: Sandro Richardson Consult Reason/Comments: copd Do you want consulting provider notified?: Yes Primary care physician: Stated None Hospital Course: Patient is a 65-year-old male with no known past medical history who was diagnosed with elevated on October 07, symptoms starting at approximately 10/03 and presented to the ER secondary to several episodes of syncope, generalized body aches, fever, and chills. Patient was admitted to the hospital for further management of his medical problems noted below COVID Pneumonitis with acute hypoxic respiratory failure: We finish 10 days course of Decadron. Vitamin C, vitamin D, zinc, and melatonin. Plasma ordered by pulmonology but was not available at this time Transaminitis likely related to viral illness Syncope, exact etiology unclear. Orthostatic checked and negative. Echocardiogram showed preserved ejection fraction and no significant valvular abnormalities. Hx of tobacco abuse Patient's overall condition improved significantly. O2 sats was greater than 90% on room air at rest and with ambulation on the day of discharge. He will be discharged home in a stable condition. He will follow-up with his PCP as directed. Patient Condition at Discharge: Stable Plan - Discharge Summary Discharge Rx Participant: Yes New Discharge Prescriptions: New Dexamethasone [Decadron] 6 mg PO DAILY 7 Days #7 tablet Melatonin 3 mg PO HS #30 tablet Zinc Sulfate [Orazinc] 220 mg PO DAILY #30 cap Albuterol Inhaler [Ventolin Hfa Inhaler] 2 puff INHALATION RT-Q6H PRN #1 inhaler PRN Reason: Shortness Of Breath Or Wheezing Cholecalciferol [Vitamin D3 (25 Mcg = 1000 Iu)] 50 mcg PO DAILY #30 tablet Continue Ondansetron Odt [Zofran ODT] 4 mg PO Q8HR PRN #10 tab PRN Reason: Nausea Discontinued Ibuprofen [Motrin Ib] 800 mg PO Q4H PRN PRN Reason: Pain Or Fever > 100.5 Acetaminophen [Tylenol] 1,000 mg PO Q4H PRN PRN Reason: Pain Or Fever > 100.5 Discharge Medication List Ondansetron Odt [Zofran ODT] 4 mg PO Q8HR PRN #10 tab 04/01/21 [Rx] Albuterol Inhaler [Ventolin Hfa Inhaler] 2 puff INHALATION RT-Q6H PRN #1 inhaler 10/15/20 [Rx] Cholecalciferol [Vitamin D3 (25 Mcg = 1000 Iu)] 50 mcg PO DAILY #30 tablet 10/15/20 [Rx] Dexamethasone [Decadron] 6 mg PO DAILY 7 Days #7 tablet 10/15/20 [Rx] Melatonin 3 mg PO HS #30 tablet 10/15/20 [Rx] Zinc Sulfate [Orazinc] 220 mg PO DAILY #30 cap 10/15/20 [Rx] Follow up Appointment(s)/Referral(s): Korey Richardson [STAFF PHYSICIAN] - 1 Week Discharge Disposition: HOME SELF-CARE
--- NOTE | 2020-10-15 12:50 | P.PN ---
Subjective Progress Note Date: 10/15/20 Principal diagnosis: Dyspnea, hypoxemia, abnormal chest x-ray, COVID 19 65-year-old white male patient, who is a former smoker, quit smoking 5 years ago, but no chronic lung condition, not on any chronic prescription medications on a regular basis, who came into the emergency department on 10/12/2020 with symptoms of increased shortness of breath, cough, patient was having high fevers at home, and had a syncopal episodes. he was seen in the ER on 10/07/2020 and tested positive for COVID 19, he had initial symptoms of cough, body aches, nausea vomiting on 10/01/2020. He states his nephew apparently recently tested positive for COVID 19 and he had been in contact with him. Normally he does not wear any oxygen. He was sent home on 10/07/2020 however at home he continued to deteriorate, he had several syncopal episodes at home, high fevers, his was treating his fever with [id number] antipyretics, and wrapping him in cold wet towels. He is now requiring supplemental oxygen, currently on 3 L of oxygen pulse ox is 93%, afebrile while in the hospital, hemodynamically he is stable, she was started on Decadron, he was given IV fluids, started on prophylactic anticoagulation, and we were asked to see the patient in consultation for COVID 19 related pneumonia. His chest x-ray shows patchy perihilar and basilar infiltrates. Lab work showed white count 8.6, hemoglobin is 15.9, no lymphopenia, lymphocyte count was normal at 2.18, metamyelocytes of 0.09, and d- dimer was 1.17, electrolytes within normal limits, BUN of 23, creatinine 0.83, AST was 99, ALT was 88, alkaline phosphatase was 98, LDH was 1511, and CRP was 89.1. 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 No acute issues overnight, his been afebrile, at rest he seems to be breathing comfortably, lung sounds positive for scattered crackles, no wheezes, no recurrent syncopal episodes, tolerating oral diet, no nausea or vomiting, today's labs are pending, repeat chest x-ray is pending, his ferritin on yesterday's labs as been significantly elevated at 1368, and his inflammatory markers remains elevated with LDH at 1535. D-dimer was 0.88, patient is on prophylactic dose Lovenox. She remains on IV hydration 0.9 normal saline at 100 ML per hour. On 10/15/2020 patient seen in follow-up on medical floor, room air pulse ox is 95%, lung sounds are clear patient is feeling much better, breathing much easier, he still has some exertional dyspnea, but has been tolerating ambulation about the room without difficulty. No fever or chills, hemodynamically patient is stable, no chest pain, the cough is improving, no acute events overnight, today's labs have been reviewed. He has not been able to get convalescent plasma because of low availability. However he improved with standard treatment with steroids, prophylactic anticoagulation and vitamins, and he stable for discharge home today Objective - Vital Signs Vital signs: Vital Signs Temp 98 F 10/15/20 07:22 Pulse 55 L 10/15/20 07:22 Resp 18 10/15/20 07:44 BP 143/80 10/15/20 07:22 Pulse Ox 95 10/15/20 09:02 Intake & Output 10/14/20 10/15/20 10/15/20 18:59 06:59 18:59 Intake Total 180 Balance 180 Intake: Oral 180 Other: Voiding Method Toilet # Voids 3 2 - Exam GENERAL EXAM: Alert, very pleasant, 65-year-old white male, room air pulse ox is 95%, comfortable in no apparent distress. HEAD: Normocephalic/atraumatic. EYES: Normal reaction of pupils, equal size. Conjunctiva pink, sclera white. NOSE: Clear with pink turbinates. THROAT: No erythema or exudates. NECK: No masses, no JVD, no thyroid enlargement, no adenopathy. CHEST: No chest wall deformity. Symmetrical expansion. LUNGS: Equal air entry with bibasilar crackles CVS: Regular rate and rhythm, normal S1 and S2, no gallops, no murmurs, no rubs ABDOMEN: Soft, nontender. No hepatosplenomegaly, normal bowel sounds, no guarding or rigidity. EXTREMITIES: No clubbing, no edema, no cyanosis, 2+ pulses and upper and lower extremities. MUSCULOSKELETAL: Muscle strength and tone normal. SPINE: No scoliosis or deformity SKIN: No rashes CENTRAL NERVOUS SYSTEM: Alert and oriented -3. No focal deficits, tone is normal in all 4 extremities. PSYCHIATRIC: Alert and oriented -3. Appropriate affect. Intact judgment and insight. - Labs CBC & Chem 7: 10/13/20 04:45 10/14/20 10:35 Assessment and Plan Plan: Assessment: #1. Acute hypoxic respiratory failure related to acute COVID 19 pneumonitis, first onset of symptoms on 10/01/2020, tested positive on 10/07/2020, out of the window for Remdesivir #2. Syncopal episodes, fever, dyspnea, body aches, nausea vomiting and diarrhea related to the above #3. Increased inflammatory markers and increased d-dimer 1.17 on admission related to acute COVID 19 infection #4. Elevated transaminases likely related to viral pneumonia #5. 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 Stable for discharge home today I performed a history & physical examination of the patient and discussed their management with my nurse practitioner, Mirlande Hoffmann. I reviewed the nurse practitioner's note and agree with the documented findings and plan of care. Lung sounds are positive for bibasilar rales. The findings and the impression was discussed with the patient. I attest to the documentation by the nurse practitioner. Time with Patient: Less than 30
== END 2020-10-15 13:15 | disposition home or self-care (01) | DRG 177 ==
LOC: EC 18:49 → 4SSUR 23:09 → 1SOBS 10-13 07:08
PROVIDERS: ADMIT Internal Medicine; ATTEND Internal Medicine
DX: U07.1 COVID-19 (principal); J12.82 Pneumonia due to coronavirus disease 2019; J96.01 Acute respiratory failure with hypoxia; A08.39 Other viral enteritis; J44.0 Chronic obstructive pulmonary disease with (acute) lower respiratory infection; E86.0 Dehydration; R74.01 Elevation of levels of liver transaminase levels; Z87.891 Personal history of nicotine dependence; Z82.49 Family history of ischemic heart disease and other diseases of the circulatory system; Z88.0 Allergy status to penicillin; Z80.7 Family history of other malignant neoplasms of lymphoid, hematopoietic and related tissues
CPT/HCPCS: 71045; 80048; 80053; 82728; 83605; 83615; 83735; 84100; 85025; 85379; 85610; 85730; 86140; 86850; 86900; 86901; 93005; 93306; 94640; 99285

== ENCOUNTER 2021-11-24 01:38 | Emergency (ER) | payer OTHER ==
[2021-11-24 01:50] VITALS: RESP 18
[2021-11-24] MEDS ORDERED: MORPHINE SULFATE 4 MG/ML SYRINGE IV STA (02:35)
[2021-11-24] MEDS ORDERED: SODIUM CHLORIDE 0.9% 1,000 ML IV STA (02:35)
[2021-11-24] MEDS ORDERED: ONDANSETRON 4 MG/2 ML VIAL IVP STA (02:35)
--- NOTE | 2021-11-24 02:36 | ED ---
Abdominal Pain HPI - General Chief Complaint: Abdominal Pain Stated Complaint: Abdominal Pain Time Seen by Provider: 11/24/21 02:32 Source: patient, EMS, RN notes reviewed, old records reviewed Mode of arrival: EMS Limitations: no limitations - History of Present Illness Initial Comments: This is a 66-year-old male he presents with epigastric type abdominal pain. Significant epigastric abdominal pain with nausea no vomiting. Worse when he touches worse when he moves.patient has history of 3 days of nausea vomiting. No fevers occasional abdominal pain abdominal pain worse today. Follow with her normal no diarrhea. MD Complaint: abdominal pain, other (nausea vomiting) -: days(s) Severity: moderate Severity scale (1-10): 7 Quality: cramping, aching, fullness Consistency: constant Improves With: nothing Worsens With: nothing Associated Symptoms: nausea, vomiting Treatments Prior to Arrival: other (none) - Related Data Previous Rx's Medication Instructions Recorded Ondansetron Odt [Zofran ODT] 4 mg PO Q8HR PRN #10 tab 10/07/20 Albuterol Inhaler [Ventolin Hfa 2 puff INHALATION RT-Q6H PRN #1 10/15/20 Inhaler] inhaler Cholecalciferol [Vitamin D3 (25 50 mcg PO DAILY #30 tablet 10/15/20 Mcg = 1000 Iu)] Dexamethasone [Decadron] 6 mg PO DAILY 7 Days #7 tablet 10/15/20 Melatonin 3 mg PO HS #30 tablet 10/15/20 Zinc Sulfate [Orazinc] 220 mg PO DAILY #30 cap 10/15/20 Allergies Allergy/AdvReac Type Severity Reaction Status Date / Time Penicillins Allergy Unknown Verified 10/12/20 23:31 Childhood Review of Systems ROS Statement: Those systems with pertinent positive or pertinent negative responses have been documented in the HPI. ROS Other: All systems not noted in ROS Statement are negative. Past Medical History Past Medical History: Respiratory Disorder Additional Past Medical History / Comment(s): Pt diagnosed with covid 4/[address] [facility] ER. Pt states he has no past medical hx and that he does not see a physician regularly. History of Any Multi-Drug Resistant Organisms: None Reported Past Surgical History: No Surgical Hx Reported Past Anesthesia/Blood Transfusion Reactions: Unable to Obtain Additional Past Anesthesia/Blood Transfusion Reaction / Comment(s): Pt has never had surgery. Past Psychological History: No Psychological Hx Reported Smoking Status: Former smoker - Past Family History Mother Family Medical History: Coronary Artery Disease (CAD) Additional Family Medical History / Comment(s): Mother had cardiac stents. She lived to be 83 yrs old. Father Family Medical History: Cancer Additional Family Medical History / Comment(s): Father of lymphoma at the age of 85 yrs. family Family Medical History: No Reported History General Exam General appearance: alert, in no apparent distress Head exam: Present: atraumatic, normocephalic, normal inspection Eye exam: Present: normal appearance, PERRL, EOMI. Absent: scleral icterus, conjunctival injection, periorbital swelling ENT exam: Present: normal exam, mucous membranes moist Neck exam: Present: normal inspection. Absent: tenderness, meningismus, lymphadenopathy Respiratory exam: Present: normal lung sounds bilaterally. Absent: respiratory distress, wheezes, rales, rhonchi, stridor Cardiovascular Exam: Present: regular rate, normal rhythm, normal heart sounds. Absent: systolic murmur, diastolic murmur, rubs, gallop, clicks GI/Abdominal exam: Present: soft, tenderness, normal bowel sounds. Absent: distended, guarding, rebound, rigid Extremities exam: Present: normal inspection, full ROM, normal capillary refill. Absent: tenderness, pedal edema, joint swelling, calf tenderness Back exam: Present: normal inspection Neurological exam: Present: alert, oriented X3, CN II-XII intact Psychiatric exam: Present: normal affect, normal mood Skin exam: Present: warm, dry, intact, normal color. Absent: rash Course Vital Signs 11/24/21 01:43 Pulse Rate 60 Respiratory 18 Rate Blood Pressure 152/116 O2 Sat by Pulse 100 Oximetry - Reevaluation(s) Reevaluation #1: 11/24/21 05:03 medical record is reviewed Reevaluation #2: 11/24/21 05:03 patient symptoms are improved Reevaluation #3: 11/24/21 05:03 patient informed results and questions are answered Medical Decision Making - Medical Decision Making 66 male to the emergency departmentF for evaluation. Patient presents today for evaluation regards to abdominal pain 3 days of nausea vomiting. Symptoms improved here in the ER will give symptom control for home and patient can be discharged home - Lab Data Result diagrams: 11/24/21 03:50 11/24/21 03:50 Lab Results 11/24/21 11/24/21 11/24/21 Range/Units 03:50 03:50 03:50 WBC 13.4 H (3.8-10.6) k/uL RBC 5.01 (4.30-5.90) m/uL Hgb 15.3 (13.0-17.5) gm/dL Hct 45.6 (39.0-53.0) % MCV 91.1 (80.0-100.0) fL MCH 30.5 (25.0-35.0) pg MCHC 33.5 (31.0-37.0) g/dL RDW 14.3 (11.5-15.5) % Plt Count 347 (150-450) k/uL MPV 8.6 Neutrophils % 81 % Lymphocytes % 11 % Monocytes % 6 % Eosinophils % 0 % Basophils % 0 % Neutrophils # 10.8 H (1.3-7.7) k/uL Lymphocytes # 1.4 (1.0-4.8) k/uL Monocytes # 0.8 (0-1.0) k/uL Eosinophils # 0.0 (0-0.7) k/uL Basophils # 0.0 (0-0.2) k/uL Sodium 140 (137-145) mmol/L Potassium 4.3 (3.5-5.1) mmol/L Chloride 105 (98-107) mmol/L Carbon Dioxide 26 (22-30) mmol/L Anion Gap 9 mmol/L BUN 17 (9-20) mg/dL Creatinine 0.92 (0.66-1.25) mg/dL Est GFR (CKD-EPI)AfAm >90 (>60 ml/min/1.73 sqM) Est GFR (CKD-EPI)NonAf 88 (>60 ml/min/1.73 sqM) Glucose 147 H (74-99) mg/dL Calcium 8.9 (8.4-10.2) mg/dL Total Bilirubin 0.7 (0.2-1.3) mg/dL AST 26 (17-59) U/L ALT 30 (4-49) U/L Alkaline Phosphatase 73 (38-126) U/L Troponin I <0.012 (0.000-0.034) ng/mL Total Protein 7.2 (6.3-8.2) g/dL Albumin 4.2 (3.5-5.0) g/dL Amylase 95 (30-110) U/L Lipase 66 (23-300) U/L - Radiology Data Radiology results: report reviewed (CT abdomen and pelvis negative for acute disease), image reviewed Disposition Clinical Impression: Abdominal pain, Nausea & vomiting Disposition: HOME SELF-CARE Condition: Good Instructions (If sedation given, give patient instructions): Abdominal Pain (ED), Acute Nausea and Vomiting (ED) Is patient prescribed a controlled substance at d/c from ED?: No Referrals: None,Stated [Primary Care Provider] - 1-2 days
--- NOTE | 2021-11-24 03:46 | CT ---
EXAMINATION TYPE: CT abdomen pelvis w con DATE OF EXAM: 11/24/2021 COMPARISON: HISTORY: N/V X3DAYS, NO FEVER/DIARRHEA CT DLP: 1366.1 mGycm Automated exposure control for dose reduction was used. CONTRAST: Performed with IV Contrast, patient injected with 100 mL of Isovue 300. EXAMINATION TYPE: CT abdomen pelvis w con DATE OF EXAM: 11/24/2021 COMPARISON: None HISTORY: ABDOMINAL & TESTICULAR PAIN CT DLP: mGycm Automated exposure control for dose reduction was used. : Images obtained from the diaphragm to the floor the pelvis with IV contrast. Lung bases are clear of consolidation. There is minimal subsegmental atelectasis left lung base. Hear t size is normal. No pericardial effusion. Liver spleen stomach pancreas gallbladder appear intact. The bile ducts are not dilated. There is no adrenal mass. Kidneys show satisfactory contrast opacification. There is no hydronephrosi s. Ureters are not dilated. There is no retroperitoneal adenopathy. Appendix is posterior and inferio r and appears normal. Bladder distends smoothly. There is no inguinal hernia. No free fluid in the pe lvis. No pelvic mass. There is no mesenteric edema. No ascites or free air. No bowel obstruction. Delayed images show mason l renal excretion. The lumbar vertebrae have normal alignment. No compression fracture. Disc spaces a re fairly normal. Bony pelvis is intact. The hip joints are intact. Sacroiliac joints are intact. IMPRESSION: No acute abnormality within the abdomen and pelvis. Normal appendix. Minimal subsegmental atelectasis at the left lung base.
[2021-11-24 04:37] LABS: Basophils % (A) 0 %; Eosinophils % (A) 0 %; HCT 45.6 % (39.0-53.0); HGB 15.3 gm/dL (13.0-17.5); Lymphocytes # (A) 1.4 k/uL (1.0-4.8); Lymphocytes % (A) 11 %; MCH 30.5 pg (25.0-35.0); MCHC 33.5 g/dL (31.0-37.0); MCV 91.1 fL (80.0-100.0); Mean Platelet Volume 8.6; Monocytes # (A) 0.8 k/uL (0-1.0); Monocytes % (A) 6 %; Neutrophils # (A) 10.8 k/uL (1.3-7.7); Neutrophils % (A) 81 %; Platelet Count 347 k/uL (150-450); RBC 5.01 m/uL (4.30-5.90); RDW 14.3 % (11.5-15.5); WBC 13.4 k/uL (3.8-10.6)
[2021-11-24 04:41] LABS: ALT 30 U/L (4-49); AST 26 U/L (17-59); African American GFR (CKD) >90 (>60 ml/min/1.73 sqM); Albumin 4.2 g/dL (3.5-5.0); Alkaline Phosphatase 73 U/L (38-126); Amylase 95 U/L (30-110); Anion Gap 9 mmol/L; Blood Urea Nitrogen 17 mg/dL (9-20); Calcium 8.9 mg/dL (8.4-10.2); Carbon Dioxide 26 mmol/L (22-30); Chloride 105 mmol/L (98-107); Glucose 147 mg/dL (74-99); Lipase 66 U/L (23-300); Non-African American GFR(CKD) 88 (>60 ml/min/1.73 sqM); Potassium 4.3 mmol/L (3.5-5.1); Sodium 140 mmol/L (137-145); Total Bilirubin 0.7 mg/dL (0.2-1.3); Total Protein 7.2 g/dL (6.3-8.2)
[2021-11-24 05:42] VITALS: BP 161/101; PULSE 80
== END 2021-11-24 05:41 | disposition home or self-care (01) ==
LOC: EC 01:38
DX: R10.13 Epigastric pain (principal); R11.2 Nausea with vomiting, unspecified; Z88.0 Allergy status to penicillin; Z86.16 Personal history of COVID-19; Z87.891 Personal history of nicotine dependence
CPT/HCPCS: 36415; 80053; 82150; 83605; 83690; 84484; 85025; 74177; 99284; 96374; 96375; J2270; J2405; Q9967

== ENCOUNTER 2022-01-28 21:36 | Emergency (ER) | payer OTHER ==
[2022-01-28 21:45] VITALS: RESP 18; TEMP 98.5
[2022-01-28 22:21] LABS: INR 0.9 (<1.2); Partial Thromboplastin Time 24.1 sec (22.0-30.0); Prothrombin Time 10.1 sec (9.0-12.0)
[2022-01-28 22:36] VITALS: BP 172/118; PULSE 95
[2022-01-28 22:36] LABS: Basophils # (A) 0.1 k/uL (0-0.2); Basophils % (A) 1 %; Eosinophils # (A) 0.2 k/uL (0-0.7); Eosinophils % (A) 2 %; HCT 45.5 % (39.0-53.0); HGB 14.8 gm/dL (13.0-17.5); Lymphocytes # (A) 3.3 k/uL (1.0-4.8); Lymphocytes % (A) 26 %; MCH 29.6 pg (25.0-35.0); MCHC 32.6 g/dL (31.0-37.0); MCV 90.8 fL (80.0-100.0); Mean Platelet Volume 8.6; Monocytes % (A) 8 %; Neutrophils # (A) 7.7 k/uL (1.3-7.7); Neutrophils % (A) 61 %; Platelet Count 298 k/uL (150-450); RBC 5.01 m/uL (4.30-5.90); RDW 13.5 % (11.5-15.5); WBC 12.6 k/uL (3.8-10.6)
[2022-01-28 22:52] LABS: ALT 30 U/L (4-49); AST 26 U/L (17-59); African American GFR (CKD) >90 (>60 ml/min/1.73 sqM); Albumin 4.2 g/dL (3.5-5.0); Alkaline Phosphatase 75 U/L (38-126); Anion Gap 10 mmol/L; Blood Urea Nitrogen 19 mg/dL (9-20); Calcium 9.3 mg/dL (8.4-10.2); Carbon Dioxide 22 mmol/L (22-30); Chloride 107 mmol/L (98-107); Glucose 131 mg/dL (74-99); Non-African American GFR(CKD) 78 (>60 ml/min/1.73 sqM); Potassium 4.2 mmol/L (3.5-5.1); Sodium 139 mmol/L (137-145); Total Bilirubin 0.7 mg/dL (0.2-1.3)
[2022-01-28] MEDS ORDERED: SODIUM CHLORIDE 0.9% 1,000 ML IV STA (22:54)
[2022-01-28] MEDS ORDERED: ONDANSETRON 4 MG/2 ML VIAL IVP STA ×2 (22:54→23:41)
[2022-01-28] MEDS ORDERED: HYDROmorphone 0.5 MG/0.5 ML SYRINGE IVP STA (22:54)
--- NOTE | 2022-01-28 23:04 | ED ---
Abdominal Pain HPI - General Chief Complaint: Chest Pain Stated Complaint: Abd/chest pain Time Seen by Provider: 01/28/22 22:45 Source: patient Mode of arrival: wheelchair Limitations: no limitations - History of Present Illness Initial Comments: 's patient is a 66-year-old man who presents with recurrent epigastric abdominal pain. The patient was triaged as chest pain but he states he is not having any chest pain. He has been having episodes like this every few days going back for months now. The patient states that around 8 PM he started having another episode of the upper abdominal pain accompanied by nausea and vomiting. He is having vomiting every 10 or 15 minutes. He has not seen coffee-ground material or hematemesis. He states that he had eaten meatballs prior to onset. MD Complaint: abdominal pain Onset/Timin -: hour(s) Location: epigastric Radiation: none Migration to: no migration Severity: severe Quality: cramping, sharp Consistency: constant Improves With: nothing Worsens With: nothing Associated Symptoms: nausea, vomiting - Related Data Previous Rx's Medication Instructions Recorded Ondansetron Odt [Zofran ODT] 4 mg PO Q8HR PRN #10 tab 10/07/20 Albuterol Inhaler [Ventolin Hfa 2 puff INHALATION RT-Q6H PRN #1 10/15/20 Inhaler] inhaler Cholecalciferol [Vitamin D3 (25 50 mcg PO DAILY #30 tablet 10/15/20 Mcg = 1000 Iu)] Melatonin 3 mg PO HS #30 tablet 10/15/20 Zinc Sulfate [Orazinc] 220 mg PO DAILY #30 cap 10/15/20 dexAMETHasone [Decadron] 6 mg PO DAILY 7 Days #7 tablet 10/15/20 Allergies Allergy/AdvReac Type Severity Reaction Status Date / Time Penicillins Allergy Unknown Verified 10/12/20 23:31 Childhood Review of Systems ROS Statement: Those systems with pertinent positive or pertinent negative responses have been documented in the HPI. ROS Other: All systems not noted in ROS Statement are negative. Constitutional: Denies: fever, chills Respiratory: Denies: cough, dyspnea Cardiovascular: Denies: chest pain, palpitations, edema, syncope Gastrointestinal: Reports: abdominal pain, nausea, vomiting. Denies: diarrhea, constipation, melena Genitourinary: Denies: dysuria, hematuria Musculoskeletal: Denies: back pain Skin: Denies: rash Neurological: Denies: headache, weakness, numbness Past Medical History Past Medical History: Respiratory Disorder Additional Past Medical History / Comment(s): Pt diagnosed with covid 4/ at [facility] ER. Pt states he has no past medical hx and that he does not see a physician regularly. History of Any Multi-Drug Resistant Organisms: None Reported Past Surgical History: No Surgical Hx Reported Past Anesthesia/Blood Transfusion Reactions: Unable to Obtain Additional Past Anesthesia/Blood Transfusion Reaction / Comment(s): Pt has never had surgery. Past Psychological History: No Psychological Hx Reported Smoking Status: Former smoker - Past Family History Mother Family Medical History: Coronary Artery Disease (CAD) Additional Family Medical History / Comment(s): Mother had cardiac stents. She lived to be 83 yrs old. Father Family Medical History: Cancer Additional Family Medical History / Comment(s): Father of lymphoma at the a ge of 85 yrs. family Family Medical History: No Reported History General Exam Limitations: no limitations General appearance: alert, in no apparent distress Head exam: Present: atraumatic, normocephalic Eye exam: Present: normal appearance. Absent: scleral icterus, conjunctival injection Neck exam: Present: normal inspection Respiratory exam: Present: normal lung sounds bilaterally. Absent: respiratory distress, wheezes, rales, rhonchi, stridor Cardiovascular Exam: Present: regular rate, normal rhythm, normal heart sounds. Absent: systolic murmur, diastolic murmur, rubs, gallop GI/Abdominal exam: Present: soft, tenderness, hypoactive bowel sounds. Absent: distended, guarding, rebound, rigid, mass, pulsatile mass, hernia Extremities exam: Present: normal inspection, normal capillary refill. Absent: pedal edema, calf tenderness Back exam: Present: normal inspection. Absent: CVA tenderness (R), CVA tenderness (L) Neurological exam: Present: alert Skin exam: Present: warm, dry, intact, normal color. Absent: rash Course Vital Signs 01/28/22 01/28/22 21:42 22:35 Temperature 98.5 F Pulse Rate 84 95 Respiratory 18 18 Rate Blood Pressure 179/107 172/118 O2 Sat by Pulse 98 98 Oximetry Medical Decision Making - Lab Data Result diagrams: 01/28/22 21:58 01/28/22 21:58 Lab Results 01/28/22 01/28/22 01/28/22 Range/Units 21:58 21:58 21:58 WBC 12.6 H (3.8-10.6) k/uL RBC 5.01 (4.30-5.90) m/uL Hgb 14.8 (13.0-17.5) gm/dL Hct 45.5 (39.0-53.0) % MCV 90.8 (80.0-100.0) fL MCH 29.6 (25.0-35.0) pg MCHC 32.6 (31.0-37.0) g/dL RDW 13.5 (11.5-15.5) % Plt Count 298 (150-450) k/uL MPV 8.6 Neutrophils % 61 % Lymphocytes % 26 % Monocytes % 8 % Eosinophils % 2 % Basophils % 1 % Neutrophils # 7.7 (1.3-7.7) k/uL Lymphocytes # 3.3 (1.0-4.8) k/uL Monocytes # 1.0 (0-1.0) k/uL Eosinophils # 0.2 (0-0.7) k/uL Basophils # 0.1 (0-0.2) k/uL PT 10.1 (9.0-12.0) sec INR 0.9 (<1.2) APTT 24.1 (22.0-30.0) sec Sodium 139 (137-145) mmol/L Potassium 4.2 (3.5-5.1) mmol/L Chloride 107 (98-107) mmol/L Carbon Dioxide 22 (22-30) mmol/L Anion Gap 10 mmol/L BUN 19 (9-20) mg/dL Creatinine 1.01 (0.66-1.25) mg/dL Est GFR (CKD-EPI)AfAm >90 (>60 ml/min/1.73 sqM) Est GFR (CKD-EPI)NonAf 78 (>60 ml/min/1.73 sqM) Glucose 131 H (74-99) mg/dL Calcium 9.3 (8.4-10.2) mg/dL Magnesium 2.0 (1.6-2.3) mg/dL Total Bilirubin 0.7 (0.2-1.3) mg/dL AST 26 (17-59) U/L ALT 30 (4-49) U/L Alkaline Phosphatase 75 (38-126) U/L Troponin I (0.000-0.034) ng/mL Total Protein 7.0 (6.3-8.2) g/dL Albumin 4.2 (3.5-5.0) g/dL Amylase (30-110) U/L Lipase (23-300) U/L 01/28/22 01/28/22 Range/Units 21:58 23:12 WBC (3.8-10.6) k/uL RBC (4.30-5.90) m/uL Hgb (13.0-17.5) gm/dL Hct (39.0-53.0) % MCV (80.0-100.0) fL MCH (25.0-35.0) pg MCHC (31.0-37.0) g/dL RDW (11.5-15.5) % Plt Count (150-450) k/uL MPV Neutrophils % % Lymphocytes % % Monocytes % % Eosinophils % % Basophils % % Neutrophils # (1.3-7.7) k/uL Lymphocytes # (1.0-4.8) k/uL Monocytes # (0-1.0) k/uL Eosinophils # (0-0.7) k/uL Basophils # (0-0.2) k/uL PT (9.0-12.0) sec INR (<1.2) APTT (22.0-30.0) sec Sodium (137-145) mmol/L Potassium (3.5-5.1) mmol/L Chloride (98-107) mmol/L Carbon Dioxide (22-30) mmol/L Anion Gap mmol/L BUN (9-20) mg/dL Creatinine (0.66-1.25) mg/dL Est GFR (CKD-EPI)AfAm (>60 ml/min/1.73 sqM) Est GFR (CKD-EPI)NonAf (>60 ml/min/1.73 sqM) Glucose (74-99) mg/dL Calcium (8.4-10.2) mg/dL Magnesium (1.6-2.3) mg/dL Total Bilirubin (0.2-1.3) mg/dL AST (17-59) U/L ALT (4-49) U/L Alkaline Phosphatase (38-126) U/L Troponin I <0.012 (0.000-0.034) ng/mL Total Protein (6.3-8.2) g/dL Albumin (3.5-5.0) g/dL Amylase 90 (30-110) U/L Lipase 129 (23-300) U/L Disposition Clinical Impression: Biliary colic Disposition: HOME SELF-CARE Condition: Good Instructions (If sedation given, give patient instructions): Biliary Colic (ED) Is patient prescribed a controlled substance at d/c from ED?: No Referrals: Marcelino Martinez DO [Doctor of Osteopathic Medicine] - 1-2 days
[2022-01-28 23:21] LABS: Amylase 90 U/L (30-110); Lipase 129 U/L (23-300)
[2022-01-28] MEDS ORDERED: HYDROmorphone 1 MG/ML 1 ML SYRINGE IVP STA (23:41)
--- NOTE | 2022-01-29 01:45 | US ---
EXAMINATION TYPE: US abdomen limited DATE OF EXAM: 01/29/2022 COMPARISON: NONE CLINICAL HISTORY: attention RUQ. Pain nausea and vomiting. EXAM MEASUREMENTS: Liver Length: 13.6 cm Gallbladder Wall: .4 cm CBD: .6 upper limits Right Kidney: 11.3 x 5.1 x 4.5 cm Pancreas: Obscured by bowel gas Liver: Increased attenuation Gallbladder: Stones seen Evidence for sonographic Lin's sign: yes normal right kidney. CBD: Limited Right Kidney: No hydronephrosis or masses seen IMPRESSION: There are several gallstones. No dilated ducts. No focal liver defect.
--- NOTE | 2022-01-29 01:52 | XR ---
EXAMINATION TYPE: XR chest 2V DATE OF EXAM: 01/29/2022 COMPARISON: 10/14/2020 HISTORY: Chest pain TECHNIQUE: 2 views FINDINGS: There is no heart failure nor confluent pneumonic infiltrate. Costophrenic angles are clear . There are chest leads. Bony thorax is intact. IMPRESSION: Normal chest. There is clearing of the mild pulmonary interstitial edema compared to the old exam.
[2022-01-29] MEDS ORDERED: traMADol 50 MG STARTER PACK 3 TAB BTL PO STA (02:50)
[2022-01-29] MEDS ORDERED: ONDANSETRON 4 MG ODT STARTER PACK 2 TAB BTL PO STA (02:50)
== END 2022-01-29 03:01 | disposition home or self-care (01) ==
LOC: EC 21:36
DX: K80.50 Calculus of bile duct without cholangitis or cholecystitis without obstruction (principal); Z87.891 Personal history of nicotine dependence; Z88.0 Allergy status to penicillin
CPT/HCPCS: 36415; 80053; 82150; 83690; 83735; 84484; 85025; 85610; 85730; 71046; 76705; 99284; 96374; 96375; 96361 ×2; 96376; J2405 ×2; J1170 ×2; S0119

== ENCOUNTER → 2024-09-30 | Outpatient (CLI) | payer MEDICARE, OTHER ==
[2024-09-30 13:56] LABS: African American GFR (CKD) >90 (>60 ml/min/1.73 sqM); Blood Urea Nitrogen 21 mg/dL (9-20); Non-African American GFR(CKD) 78 (>60 ml/min/1.73 sqM)
--- NOTE | 2024-09-30 15:10 | CT ---
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 MIP images are created and reviewed. CT DLP: 959.[address] CTDI: mGy Automated exposure control for dose reduction was used. FINDINGS: LUNGS: The lungs are grossly clear, there is no concerning parenchymal mass or nodule identified. T here is no pleural effusion or pneumothorax seen. The tracheobronchial tree is patent. MEDIASTINUM: There is satisfactory enhancement of the pulmonary artery and its branches, there is no CT evidence for pulmonary embolism. There are no greater than 1 cm hilar or mediastinal lymph nodes. No pericardial effusion is seen. Great vessels the chest are normal and is no dissection or aneurysm of the thoracic aorta. Limited scanning through the upper abdomen reveals a left hepatectomy but no other significant abnorm ality. No focal osseous lesions are seen. IMPRESSION: 1. NO THORACIC AORTIC ANEURYSM OR DISSECTION. 2. NO ACUTE CARDIOPULMONARY DISEASE [facility], , 09/30/2024 3:08 PM
== END | disposition home or self-care (01) ==
LOC: RADCTMAIN 13:12
PROVIDERS: ATTEND Student in an Organized Health Care Education/Training Program
DX: I71.011 Dissection of aortic arch (principal); N18.2 Chronic kidney disease, stage 2 (mild)
CPT/HCPCS: 82565; 84520; 71275; Q9967